=== PATIENT | male | born 1980 | race American Indian/Alaskan Native ===

== ENCOUNTER 2017-09-05 07:25 | Emergency (ER) | payer SELFPAY ==
[2017-09-05 08:15] VITALS: BP 128/80
[2017-09-05 09:08] LABS: Basophils # (Auto) 0.1 K/mm3 (0.0-0.1); Basophils % (Auto) 0.9 % (0.0-1.8); Eosinophils # (Auto) 0.2 K/mm3 (0.0-0.4); Eosinophils % (Auto) 2.9 % (0.0-4.3); Hematocrit 42.1 % (35.5-45.6); Lymphocytes # (Auto) 1.9 K/mm3 (1.2-5.4); Lymphocytes % (Auto) 29.2 % (13.4-35.0); Mean Corpuscular HGB Conc 33 % (32-34); Mean Corpuscular Hemoglobin 32 pg (28-32); Mean Corpuscular Volume 95 fl (84-94); Monocytes # (Auto) 0.5 K/mm3 (0.0-0.8); Monocytes % (Auto) 8.5 % (0.0-7.3); Platelet Count 242 K/mm3 (140-440); Red Blood Count 4.44 M/mm3 (3.65-5.03); Red Cell Distribution Width 13.2 % (13.2-15.2)
[2017-09-05 09:13] LABS: BUN/Creatinine Ratio 9; Blood Urea Nitrogen 9 mg/dL (9-20); Calcium 8.8 mg/dL (8.4-10.2); Hemolysis Index 6
--- NOTE | 2017-09-05 11:50 | Emergency Department Report ---
HPI - General Chief Complaint: Urogenital-Male Time Seen by Provider: 09/05/17 09:24 - HPI HPI: 37-year-old male presents today complaining of penile swelling post masturbation this morning. Patient states that he heard a pop while masturbating 3 hours ago and his penis has been swollen since. They find his pain as a dull ache, rating it as a 3 out of 10. Patient denies testicular pain , lump, penile discharge, dysuria, hematuria, increased urinary frequency or urgency. Patient denies having history of similar symptoms. Denies fever, chills, nausea, vomiting, chest pain, shortness of breath, abdominal pain. ED Past Medical Hx - Past Medical History Previous Medical History?: No - Surgical History Past Surgical History?: No - Social History Smoking Status: Never Smoker Substance Use Type: Alcohol, Marijuana ED Review of Systems ROS: Stated complaint: PENIS DISCHARGE Other details as noted in HPI Constitutional: denies: chills, fever, malaise Eyes: denies: eye pain ENT: denies: ear pain, throat pain, congestion Respiratory: denies: cough, shortness of breath, wheezing Cardiovascular: denies: chest pain, palpitations Endocrine: no symptoms reported Gastrointestinal: denies: abdominal pain, nausea, vomiting Genitourinary: denies: urgency, dysuria, frequency, hematuria, discharge, testicular pain, testicular mass Skin: denies: rash, lesions Neurological: denies: headache, weakness, numbness, paresthesias Physical Exam - Physical Exam Vital Signs: Vital Signs 09/05/17 08:09 Temperature 98.2 F Pulse Rate 70 Respiratory 18 Rate Blood Pressure 128/80 O2 Sat by Pulse 99 Oximetry Physical Exam: GENERAL: The patient is well-developed and well-nourished. Patient is in NAD. HEAD: Normocephalic. Atraumatic. NECK: Supple, nontender, without lymphadenopathy. No meningitic signs are noted. CHEST/LUNGS: Clear to auscultation throughout. HEART/CARDIOVASCULAR: Regular rate and rhythm. No murmurs, rubs or gallops. ABDOMEN: Abdomen is soft, nontender. Bowel sounds normoactive. No guarding or rebound tenderness. GENITAL: Swelling noted to the penile shaft and around the glans penis. Patient is circumcised. Minimal pain to palpation over the base of the penile shaft. No echymosis, lesions or rashes noted. No penile discharge noted. Normal testicles, no tenderness to palpation. Cremasteric reflex intact. EXTREMITIES: No cyanosis, clubbing or edema. Peripheral pulses intact. Capillary refill less than 2 seconds. NEURO: Alert and oriented x 3. Normal gait. ED Course Vital Signs 09/05/17 08:09 Temperature 98.2 F Pulse Rate 70 Respiratory 18 Rate Blood Pressure 128/80 O2 Sat by Pulse 99 Oximetry - Reevaluation(s) Reevaluation #1: 09/05/17 11:[address] Wills. The patient was reexamined. ED Medical Decision Making - Lab Data Result diagrams: 09/05/17 08:45 09/05/17 08:45 Vital Signs 09/05/17 08:09 Temperature 98.2 F Pulse Rate 70 Respiratory 18 Rate Blood Pressure 128/80 O2 Sat by Pulse 99 Oximetry Lab Results 09/05/17 09/05/17 Range/Units 08:45 08:45 WBC 6.4 (4.5-11.0) K/mm3 RBC 4.44 (3.65-5.03) M/mm3 Hgb 14.0 (11.8-15.2) gm/dl Hct 42.1 (35.5-45.6) % MCV 95 H (84-94) fl MCH 32 (28-32) pg MCHC 33 (32-34) % RDW 13.2 (13.2-15.2) % Plt Count 242 (140-440) K/mm3 Lymph % (Auto) 29.2 (13.4-35.0) % Dukes % (Auto) 8.5 H (0.0-7.3) % Eos % (Auto) 2.9 (0.0-4.3) % Baso % (Auto) 0.9 (0.0-1.8) % Lymph # 1.9 (1.2-5.4) K/mm3 Dukes # 0.5 (0.0-0.8) K/mm3 Eos # 0.2 (0.0-0.4) K/mm3 Baso # 0.1 (0.0-0.1) K/mm3 Seg Neutrophils % 58.5 (40.0-70.0) % Seg Neutrophils # 3.8 (1.8-7.7) K/mm3 Sodium 144 (137-145) mmol/L Potassium 4.1 (3.6-5.0) mmol/L Chloride 104.1 (98-107) mmol/L Carbon Dioxide 28 (22-30) mmol/L Anion Gap 16 mmol/L BUN 9 (9-20) mg/dL Creatinine 1.0 (0.8-1.5) mg/dL Estimated GFR > 60 ml/min BUN/Creatinine Ratio 9 % Glucose 97 (75-100) mg/dL Calcium 8.8 (8.4-10.2) mg/dL - Medical Decision Making 37-year-old male presents today complaining of penile swelling since 7 AM this morning. Consulted with Dr. Wills. Patient will be transferred to [facility]. Patient denies transport and will be going via personal transport. Patient discharged in stable condition. Critical care attestation.: If time is entered above; I have spent that time in minutes in the direct care of this critically ill patient, excluding procedure time. ED Disposition Clinical Impression: Penile fracture Disposition: DC/TX-70 ANOTHER TYPE HLTHCARE Is pt being admited?: No Condition: Stable Additional Instructions: You have a serious penis injury. Please go directly to [place] [phone] for urological consultation by Dr. Do.
--- NOTE | 2017-09-05 11:51 | Emergency Department Report ---
ED Male HPI - General Chief complaint: Urogenital-Male Stated complaint: PENIS DISCHARGE Time Seen by Provider: 09/05/17 09:24 Source: patient Mode of arrival: Ambulatory Limitations: No Limitations - History of Present Illness Initial comments: Mr. Tomlinson is a healthy 37-year-old male who presents with penile injury. At 7 AM this morning during manual masturbation, patient heard a pop and immediate discomfort. He thought it was odd that his penis was not as hard as normal. However he continued to manually stimulate himself. He denies any other symptoms. Pain is 3 out of 10 in severity. No previous injury. He has since been able to urinate. Complaint: genital injury -: Sudden, hour(s) (4) Location: penis Radiation: none Severity scale (0 -10): 3 - Related Data Allergies Allergy/AdvReac Type Severity Reaction Status Date / Time No Known Allergies Allergy Unverified 09/05/17 08:09 ED Review of Systems ROS: Stated complaint: PENIS DISCHARGE Other details as noted in HPI Comment: All other systems reviewed and negative Constitutional: denies: chills, fever Respiratory: denies: cough Cardiovascular: denies: chest pain ED Past Medical Hx - Past Medical History Previous Medical History?: No - Surgical History Past Surgical History?: No - Social History Smoking Status: Never Smoker Substance Use Type: Alcohol, Marijuana ED Physical Exam - General Limitations: No Limitations General appearance: alert, in no apparent distress - Head Head exam: Present: atraumatic, normocephalic - Eye Eye exam: Present: normal appearance - ENT ENT exam: Present: mucous membranes moist - Neck Neck exam: Present: normal inspection - Respiratory Respiratory exam: Present: normal lung sounds bilaterally. Absent: respiratory distress - Cardiovascular Cardiovascular Exam: Present: regular rate, normal rhythm. Absent: systolic murmur, diastolic murmur, rubs, gallop - GI/Abdominal GI/Abdominal exam: Present: soft, normal bowel sounds - Rectal Rectal exam: Present: deferred - exam: Present: other (diffuse swelling of the shaft and penile skin specially around the glans penis. Patient is circumcised. However distal penile skin just proximal to glans penis is also quite swollen shaft: no ecchymosis noted tenderness no deformity) - Extremities Exam Extremities exam: Present: normal inspection - Back Exam Back exam: Present: normal inspection - Neurological Exam Neurological exam: Present: alert, oriented X3 - Psychiatric Psychiatric exam: Present: normal affect, normal mood - Skin Skin exam: Present: warm, dry, intact, normal color. Absent: rash ED Course Vital Signs 09/05/17 08:09 Temperature 98.2 F Pulse Rate 70 Respiratory 18 Rate Blood Pressure 128/80 O2 Sat by Pulse 99 Oximetry - Reevaluation(s) Reevaluation #1: 09/05/17 12:57 I spoke with transfer line nurse at [facility]. Urologist is in an emergency case. It will be up to 2 hours until he/she able to return a phone call. I will call [facility] for transfer. ED Medical Decision Making - Lab Data Result diagrams: 09/05/17 08:45 09/05/17 08:45 - Medical Decision Making I am highly concerned for penile fracture considering the history and physical exam. Dr. Do urologist accepted patient to ER transfer. Dr. Solorzano is the accepting ER physician for [facility]. Patient refused ambulance transport. He will take a private auto. Patient signed AMA form since he refused ambulance transport. He understands to go directly to the ER. Critical care attestation.: If time is entered above; I have spent that time in minutes in the direct care of this critically ill patient, excluding procedure time. ED Disposition Clinical Impression: Penile fracture Disposition: DC/TX-70 ANOTHER TYPE HLTHCARE Is pt being admited?: No Does the pt Need Aspirin: No Condition: Stable Additional Instructions: You have a serious penis injury. Please go directly to [place] [id number] for urological consultation by Dr. Do. Time of Disposition: 14:16
== END 2017-09-05 15:19 | disposition other institution (70) ==
LOC: ED 07:25
DX: S39.840A Fracture of corpus cavernosum penis, initial encounter (principal); X58.XXXA Exposure to other specified factors, initial encounter; Y93.89 Activity, other specified; Y92.89 Other specified places as the place of occurrence of the external cause; Y99.8 Other external cause status
CPT/HCPCS: 36415; 80048; 85025; 99283